=== PATIENT | female | born 1985 | race Caucasian/White ===

== ENCOUNTER 2017-05-07 07:55 | Emergency (ER) | payer SELFPAY ==
[2017-05-07] MEDS ORDERED: HYOSCYAMINE SULFATE ODT 0.125 MG TAB.SUBL SL ONE (08:27)
[2017-05-07] MEDS ORDERED: 0.9 % SODIUM CHLORIDE 1000ML 1,000 ML IV SCH (08:30)
--- NOTE | 2017-05-07 08:31 | Emergency Department Record ---
History of Present Illness - General Chief Complaint: Abdominal Pain Stated Complaint: ABD PAIN Time Seen by Provider: 05/07/17 08:27 Source: Patient Mode of Arrival: Ambulatory Limitations: No limitations - History of Present Illness Initial Comments: 32 yo female presents to ED for evaluation of diffuse abdominal pain symptoms described as "contractions", waxing and waning since last PM. Patient denies health problems at her baseline, denies fevers, chills, or urinary symptoms. Patient denies nausea/vomiting, or change in stools. Patient does report c- section x 2. Patient reports that she has been under a lot of stress this week. MD Complaint: Abdominal pain Onset/Timin -: Days(s) Location: Diffuse Radiation: None Severity: Severe Severity scale (1-10): 10 Quality: Cramping Consistency: Constant Improves With: Nothing Worsens With: Nothing Associated Symptoms: Diarrhea, Nausea - Related Data LMP (females 10-50): Current Previous Rx's Medication Instructions Recorded Hyoscyamine Sulfate [Levsin-Sl] 0.25 mg SL Q8H PRN #20 tab.subl 05/07/17 Allergies Allergy/AdvReac Type Severity Reaction Status Date / Time codeine Allergy HIVES Verified 05/07/17 08:15 Iodine and Iodide Containing Allergy HIVES Verified 05/07/17 08:15 Produc levofloxacin [From Levaquin] Allergy HIVES Verified 05/07/17 08:15 morphine Allergy HIVES Verified 05/07/17 08:15 Penicillins Allergy HIVES Verified 05/07/17 08:15 sulfamethoxazole Allergy HIVES Verified 05/07/17 08:16 [From Bactrim] trimethoprim [From Bactrim] Allergy HIVES Verified 05/07/17 08:16 Travel Screening - Travel/Exposure Within Last 30 Days Have you traveled within the last 30 days?: No Review of Systems Constitutional: Denies: Chills, Fever, Malaise, Night sweats Eyes: Denies: Eye discharge, Eye pain ENT: Denies: Congestion, Ear pain, Epistaxis Respiratory: Denies: Cough, Dyspnea Cardiovascular: Denies: Chest pain, Dyspnea on exertion Endocrine: Denies: Fatigue, Heat or cold intolerance Gastrointestinal: Reports: Abdominal pain. Denies: Nausea, Vomiting Genitourinary: Denies: Incontinence, Retention Musculoskeletal: Denies: Arthralgia, Back pain Skin: Denies: Bruising, Change in color Neurological: Denies: Abnormal gait Psychiatric: Denies: Anxiety Hematological/Lymphatic: Denies: Anemia, Blood Clots Past Medical History - SOCIAL HISTORY Smoking Status: Never smoker Alcohol Use: Occasional Drug Use: None - RESPIRATORY Hx Respiratory Disorders: No - CARDIOVASCULAR Hx Cardio Disorders: No - NEURO Hx Neuro Disorders: No - GI Hx GI Disorders: No - Hx Genitourinary Disorders: No - ENDOCRINE Hx Endocrine Disorders: No - MUSCULOSKELETAL Hx Musculoskeletal Disorders: No - PSYCH Hx Psych Problems: No - HEMATOLOGY/ONCOLOGY Hx Hematology/Oncology Disorders: No Family Medical History Any Significant Family History?: No Physical Exam - General General Appearance: Alert, Oriented x3, Cooperative, Mild distress, Anxious Limitations: No limitations - Head Head exam: Atraumatic, Normocephalic, Normal inspection Head exam detail: negative: Abrasion, Contusion, Alcocer's sign, General tenderness, Hematoma, Laceration - Eye Eye exam: Normal appearance. negative: Conjunctival injection, Periorbital swelling, Periorbital tenderness, Scleral icterus - ENT Ear exam: negative: Auricular hematoma, Auricular trauma Nasal Exam: negative: Active bleeding, Discharge, Dried blood, Foreign body Mouth exam: negative: Drooling, Laceration, Muffled voice, Tongue elevation - Neck Neck exam: Normal inspection. negative: Meningismus, Tenderness - Respiratory Respiratory exam: Normal lung sounds bilaterally. negative: Rales, Respiratory distress, Rhonchi, Stridor - Cardiovascular Cardiovascular Exam: Regular rate, Normal rhythm, Normal heart sounds - GI/Abdominal GI/Abdominal exam: Soft, Tenderness (Mild, diffuse TTP on examination). negative: Rebound, Rigid - Rectal Rectal exam: Deferred - exam: Deferred - Extremities Extremities exam: Normal inspection. negative: Calf tenderness, Pedal edema, Tenderness - Back Back exam: Denies: CVA tenderness (R), CVA tenderness (L) - Neurological Neurological exam: Alert, Normal gait, Oriented X3 - Psychiatric Psychiatric exam: Anxious - Skin Skin exam: Normal color. negative: Abrasion Type of lesion: negative: abrasion Course Vital Signs 05/07/17 08:11 Temperature 97.8 F Pulse Rate 109 H Respiratory 20 Rate Blood Pressure 105/73 Pulse Ox 99 - Reevaluation(s) Reevaluation #1: 05/07/17 09:17 Labs reviewed and are grossly unremarkable for an acute process. Reevaluation #2: 05/07/17 09:24 Patient was reassessed and reports that she is feeling much better, repeat abdominal examination is benign. CT imaging does not appear indicated based on the patient's laboratory results and physical examination, patient is in agreement. Medical Decision Making - Lab Data Result diagrams: 05/07/17 08:35 05/07/17 08:35 Disposition Disposition: Discharge Clinical Impression: Abdominal cramping Disposition: Home, Self-Care Condition: (2) Stable Instructions: Abdominal Pain (ED) Additional Instructions: Return to ED if your symptoms worsen or if you have any concerns. Levsin as directed. Follow-up with your family doctor in 3-5 days as directed. Prescriptions: Hyoscyamine Sulfate [Levsin-Sl] 0.25 mg SL Q8H PRN #20 tab.subl PRN Reason: Abdominal Pain Forms: Patient Portal Access Time of Disposition: 09:26 Quality - Quality Measures Quality Measures: N/A - Blood Pressure Screening Does Patient Have Any of the Following: No Blood Pressure Classification: Normal BP Reading Systolic Measurement: 105 Diastolic Measurement: 73 Screening for High Blood Pressure: < Normal BP, F/U Not Required > [G8783]
[2017-05-07 08:54] LABS: BASO % 0.1 % (0-6); HEMATOCRIT 37.5 % (35.0-47.0); HEMOGLOBIN 12.6 gm/dl (11.6-16.0); LYMPH % 3.4 % (16-45); MEAN CELL VOLUME 90.4 fl (81-97); MEAN CORPUSCULAR HEMOGLOBIN 30.4 pg (27-33); MEAN CORPUSCULAR HGB CONC 33.6 g/dl (32-36); MEAN PLATELET VOLUME 10.3 fl (7.4-10.4); MONO % 3.4 % (0-9); PLATELET COUNT 263 K/uL (130-400); RED BLOOD COUNT 4.15 M/uL (3.80-5.40); RED CELL DISTRIBUTION WIDTH 12.9 % (11.5-14.5); URINE APPEARANCE CLOUDY; URINE BILIRUBIN NEGATIVE (NEGATIVE); URINE BLOOD TRACE-I (NEGATIVE); URINE COLOR YELLOW; URINE GLUCOSE (UA) NEGATIVE (NEGATIVE); URINE KETONE 15 mg/dL (NEGATIVE); URINE LEUKOCYTE ESTERASE NEGATIVE (NEGATIVE); URINE NITRITE NEGATIVE (NEGATIVE); URINE PROTEIN NEGATIVE (NEGATIVE); URINE UROBILINOGEN 0.2 E.U./dL (0.20 - 1.00); WHITE BLOOD COUNT W/O DIFF 11.3 K/uL (4.2-12.2)
[2017-05-07 09:04] LABS: URINE BACTERIA NONE SEEN; URINE EPITHELIAL CELLS 0 - 2 (FEW); URINE RBC 0 - 2 (NONE SEEN); URINE WBC NONE SEEN (0-2/hpf)
[2017-05-07 09:13] LABS: ALB/GLOB RATIO 1.6 (1.1-1.8); ALBUMIN 4.3 g/dL (4.0-5.0); ALKALINE PHOSPHATASE 55 U/L (35-104); ALT/SGPT 10 U/L (<33); AST/SGOT 14 U/L (10.0-35.0); BLOOD UREA NITROGEN 8 mg/dL (6-20); CREATININE 0.6 mg/dL (0.5-0.9); EST GLOMERULAR FILTRATION RATE > 60 mL/min; GLUCOSE,RANDOM 123 mg/dL (74-109); LIPASE 32 U/L (13-60)
== END 2017-05-07 09:40 | disposition home or self-care (01) ==
LOC: ER 07:55
DX: R10.9 Unspecified abdominal pain (principal); R19.7 Diarrhea, unspecified; R11.0 Nausea
CPT/HCPCS: 99284 ×2; 83690; 80053; 81001; 81025; 85027; J1980; J7030

== ENCOUNTER 2018-08-29 09:55 | Emergency (ER) | payer SELFPAY ==
[2018-08-29] MEDS ORDERED: KETOROLAC 30 MG/ML VIAL IM ONE (10:12)
--- NOTE | 2018-08-29 10:21 | Emergency Department Record ---
History of Present Illness - General Chief complaint: Extremity Problem Stated complaint: LEFT ARM NUMB Time Seen by Provider: 08/29/18 10:00 Source: Patient Mode of Arrival: Ambulatory Limitations: No limitations - History of Present Illness Initial comments: The patient is here due to L arm tingling for 3 weeks. The symptoms were intermittent but now more severe the last few days. This AM they became constant. The tingling starts in the L shoulder and radiates down the back of the L arm to the wrist. It is worse with any L shoulder ROM or neck ROM. The patient denies any arm weakness, leg numbness or weakness, [place], visual changes, speech problems, balance issues or bowel or bladder issues. MD Complaint: Other Onset/Timin -: Week(s) Location: Left, Arm Severity scale (1-10): 6 Quality: Sharp Consistency: Constant Improves with: Immobilization Worsens with: Exertion - Related Data Previous Rx's Medication Instructions Recorded Methylprednisolone [Medrol Dose 4 mg PO DAILY #1 tab.ds.pk 08/29/18 Pack] Naproxen [Naprosyn] 250 mg PO BID #14 tablet 08/29/18 Allergies Allergy/AdvReac Type Severity Reaction Status Date / Time codeine Allergy HIVES Verified 05/07/17 08:15 Iodine and Iodide Containing Allergy HIVES Verified 05/07/17 08:15 Produc levofloxacin [From Levaquin] Allergy HIVES Verified 05/07/17 08:15 morphine Allergy HIVES Verified 05/07/17 08:15 Penicillins Allergy HIVES Verified 05/07/17 08:15 sulfamethoxazole Allergy HIVES Verified 05/07/17 08:16 [From Bactrim] trimethoprim [From Bactrim] Allergy HIVES Verified 05/07/17 08:16 Travel Screening - Travel/Exposure Within Last 30 Days Have you traveled within the last 30 days?: No Review of Systems Constitutional: Denies: Chills, Fever Eyes: Denies: Eye discharge ENT: Denies: Congestion Respiratory: Denies: Cough, Dyspnea Cardiovascular: Denies: Arrhythmia Endocrine: Denies: Fatigue Gastrointestinal: Denies: Nausea Genitourinary: Denies: Dysuria Musculoskeletal: Denies: Arthralgia Skin: Denies: Bruising Past Medical History - SOCIAL HISTORY Smoking Status: Never smoker - RESPIRATORY Hx Respiratory Disorders: No - CARDIOVASCULAR Hx Cardio Disorders: No - NEURO Hx Neuro Disorders: No - GI Hx GI Disorders: No - Hx Genitourinary Disorders: No - ENDOCRINE Hx Endocrine Disorders: No - MUSCULOSKELETAL Hx Musculoskeletal Disorders: No - PSYCH Hx Psych Problems: No - HEMATOLOGY/ONCOLOGY Hx Hematology/Oncology Disorders: No Family Medical History Any Significant Family History?: No Physical Exam - General General Appearance: Alert, Oriented x3, Cooperative, No acute distress - Head Head exam: Atraumatic, Normocephalic, Normal inspection - Eye Eye exam: Normal appearance, PERRL, EOMI - Neck Neck exam: Normal inspection, Full ROM, Tenderness (The tingling is reproduced 100% by palpation of the L posterior paraspinal cervical area at C6-7. There also is mild tenderness in that area.). negative: Lymphadenopathy, Meningismus, Thyromegaly - Respiratory Respiratory exam: Normal lung sounds bilaterally. negative: Respiratory distress - Cardiovascular Cardiovascular Exam: Regular rate, Normal rhythm, Normal heart sounds - GI/Abdominal GI/Abdominal exam: Soft, Normal bowel sounds. negative: Tenderness - Extremities Extremities exam: Normal inspection, Full ROM, Normal capillary refill. negative: Tenderness - Back Image of Body Front/Back: 1 - Area of palpation that does reproduce the patient's symptoms. - Neurological Neurological exam: Alert, CN II-XII intact, Normal gait, Oriented X3, Reflexes normal (Upper ext reflexes are 2+ and equal bilaterally in all areas.), Other (Neg Drift and Rhomberg exams.). negative: Abnormal gait, Altered, Motor sensory deficit (Motor and sensory is 5/5 bilaterally in the upper extremities and equal.) - Psychiatric Psychiatric exam: negative: Anxious - Skin Skin exam: negative: Rash Course Vital Signs 08/29/18 09:58 Temperature 98.8 F Pulse Rate 106 H Respiratory 20 Rate Blood Pressure 113/81 Pulse Ox 98 - Reevaluation(s) Reevaluation #1: The patient is doing better at this time. She has improved ROM of the L shoulder and arm with less paresthesias. There is no arm numbness or weakness. I did discuss the need for Naprosyn and a Medrol dose pack at home and the need for F/U with her PCP. 08/29/18 11:21 Medical Decision Making - Data Complexity MDM Data: Labs Ordered and/or Reviewed, X-Ray Ordered and/or Reviewed - Lab Data Result diagrams: 08/29/18 10:35 08/29/18 10:35 - Radiology Data Radiology results: Report reviewed (CSpine: Neg for acute issues.) Disposition Disposition: Discharge Clinical Impression: Cervical radiculopathy Disposition: Home, Self-Care Condition: (2) Stable Instructions: Cervical Radiculopathy (ED) Additional Instructions: Please take the Naprosyn for pain and please also start the Medrol Dose pack. Please see your doctor in 1-2 days for recheck. Return to the ER for any worsening tingling, any weakness, any leg numbness or weakness, or any bowel or bladder issues. Prescriptions: Methylprednisolone [Medrol Dose Pack] 4 mg PO DAILY #1 tab.ds.pk Naproxen [Naprosyn] 250 mg PO BID #14 tablet Forms: Patient Portal Access Time of Disposition: 11:25 Quality - Quality Measures Quality Measures: N/A - Blood Pressure Screening View Details: Yes Does Patient Have Any of the Following: No Blood Pressure Classification: Pre-Hypertensive BP Reading Systolic Measurement: 113 Diastolic Measurement: 81 Screening for High Blood Pressure: < Pre-Hypertensive BP, F/U Documented > [G8950] Pre-Hypertensive Follow-up Interventions: Referral to alternative/primary care provider.
[2018-08-29 10:45] LABS: ABSOLUTE NEUTROPHIL COUNT 3.98; BASO % 0.6 % (0-6); EOS % 1.6 % (0-6); GRAN % 63.1 % (47-80); HEMATOCRIT 39.8 % (35.0-47.0); HEMOGLOBIN 12.8 gm/dl (11.6-16.0); LYMPH % 25.8 % (16-45); MEAN CELL VOLUME 90.9 fl (81-97); MEAN CORPUSCULAR HEMOGLOBIN 29.2 pg (27-33); MEAN CORPUSCULAR HGB CONC 32.2 g/dl (32-36); MONO % 8.9 % (0-9); PLATELET COUNT 273 K/uL (130-400); RED BLOOD COUNT 4.38 M/uL (3.80-5.40); RED CELL DISTRIBUTION WIDTH 13.9 % (11.5-14.5); WHITE BLOOD COUNT W/O DIFF 6.3 K/uL (4.2-12.2)
[2018-08-29 10:56] LABS: BLOOD UREA NITROGEN 3 mg/dL (6-20)
[2018-08-29 10:57] LABS: CREATININE 0.7 mg/dL (0.5-0.9); EST GLOMERULAR FILTRATION RATE > 60 mL/min
[2018-08-29 10:59] LABS: GLUCOSE,RANDOM 107 mg/dL (74-109)
--- NOTE | 2018-08-30 08:51 | RADIOLOGY REPORT ---
EXAM: CERVICAL SPINE COMPLETE HISTORY: NECK PAIN EXTENDING INTO THE LEFT SHOULDER. TECHNIQUE: AP, lateral and both oblique views of the cervical spine are obtained as well as an odontoid view. Comparison: None. FINDINGS: The body of C7 and the odontoid process are visualized. There is minimal levoconvex curvature centered at the C4-C5 level associated with straightening of the normal cervical lordosis likely due to positioning or muscle spasm. The vertebral bodies are otherwise normal in alignment and height. No fracture, destructive bone lesion or prevertebral soft tissue swelling. There is equivocal disk space narrowing at the C6-C7 level. The intervertebral disks are otherwise maintained as are the uncovertebral joints and facet joints. The neural foraminal are patent bilaterally. IMPRESSION: 1. NO ACUTE FRACTURE, SUBLUXATION, OR PREVERTEBRAL SOFT TISSUE SWELLING. 2. STRAIGHTENING OF THE NORMAL CERVICAL LORDOSIS AND MINIMAL LEVOCURVATURE LIKELY DUE TO POSITIONING OR MUSCLE SPASM. 3. POSSIBLE MINIMAL DISK SPACE NARROWING AT THE C6-C7 LEVEL. JOB NUMBER: [id number] MTDD
== END 2018-08-29 11:33 | disposition home or self-care (01) ==
LOC: ER 09:55
DX: M54.12 Radiculopathy, cervical region (principal)
CPT/HCPCS: 99283; 96372; 99284; 85025; 80048; 84703; 72050; J1885